=== PATIENT | female | born 1955 | race Hispanic/Latino ===

== ENCOUNTER 2017-08-29 15:58 | Emergency (ER) | payer SELFPAY | END 2017-08-29 16:45 | disposition home or self-care (01) | LOC: MADERS 15:58 | DX: M51.36 Other intervertebral disc degeneration, lumbar region (principal); G89.29 Other chronic pain; M54.5 Low back pain; M19.90 Unspecified osteoarthritis, unspecified site; K21.9 Gastro-esophageal reflux disease without esophagitis; G43.909 Migraine, unspecified, not intractable, without status migrainosus; M06.9 Rheumatoid arthritis, unspecified; K51.90 Ulcerative colitis, unspecified, without complications; M79.7 Fibromyalgia; Z79.899 Other long term (current) drug therapy | CPT/HCPCS: 99283 ==

== ENCOUNTER 2017-11-10 10:07 | Emergency (ER) | payer SELFPAY | END 2017-11-10 12:20 | disposition home or self-care (01) | LOC: MADERS 10:07 | DX: M70.62 Trochanteric bursitis, left hip (principal); K51.90 Ulcerative colitis, unspecified, without complications; M06.9 Rheumatoid arthritis, unspecified; K21.9 Gastro-esophageal reflux disease without esophagitis; G43.909 Migraine, unspecified, not intractable, without status migrainosus; F17.210 Nicotine dependence, cigarettes, uncomplicated; Z79.899 Other long term (current) drug therapy | CPT/HCPCS: 99283 ==

== ENCOUNTER 2018-06-06 15:54 | Emergency (ER) | payer SELFPAY ==
[2018-06-06] MEDS ORDERED: Dexamethasone 10 MG/ML VIAL ONE (16:50)
--- NOTE | 2018-06-06 17:04 | RAD ---
3 VIEWS LEFT FOOT: Date: 06/06/18 COMPARISON: None. HISTORY: Trauma to left fifth toe a week ago. FINDINGS: There is enthesophyte formation at the insertion of the Achilles tendon and origin of the plantar apo neurosis. There is a nondisplaced, mildly comminuted fracture involving the distal aspect of the fifth proximal phalanx extending into the fifth interphalangeal joint. No evidence for dislocation. IMPRESSION: Fracture involving the distal aspect of the fifth proximal phalanx. POS: CAN
== END 2018-06-06 17:40 | disposition home or self-care (01) ==
LOC: MADERS 15:54
DX: S62.617A Displaced fracture of proximal phalanx of left little finger, initial encounter for closed fracture (principal); I10 Essential (primary) hypertension; K27.9 Peptic ulcer, site unspecified, unspecified as acute or chronic, without hemorrhage or perforation; G89.29 Other chronic pain; M06.9 Rheumatoid arthritis, unspecified; F17.210 Nicotine dependence, cigarettes, uncomplicated; Z79.899 Other long term (current) drug therapy; X58.XXXA Exposure to other specified factors, initial encounter
CPT/HCPCS: 96372; J1100

== ENCOUNTER 2018-09-04 11:33 | Emergency (ER) | payer SELFPAY ==
[2018-09-04] MEDS ORDERED: traMADol HCl 50 MG TAB ONE (12:31)
[2018-09-04] MEDS ORDERED: methylPREDNISolone Sod Succ/PF 125 MG/2 ML VIAL ONE (12:31)
== END 2018-09-04 12:40 | disposition home or self-care (01) ==
LOC: MADERS 11:33
DX: M19.90 Unspecified osteoarthritis, unspecified site (principal); K21.9 Gastro-esophageal reflux disease without esophagitis; M06.9 Rheumatoid arthritis, unspecified; F17.210 Nicotine dependence, cigarettes, uncomplicated; Z79.891 Long term (current) use of opiate analgesic; Z79.899 Other long term (current) drug therapy
CPT/HCPCS: 96372; J2930